=== PATIENT | male | born 1985 | race African-American/Black ===

== ENCOUNTER 2021-10-15 12:16 | Emergency (ER) | payer BC, SELFPAY ==
--- NOTE | ~2021-10-15 | XR_ITS ---
XR elbow RT min 3V DATE: 10/15/2021 12:54 INDICATION: Fall; right elbow pain and swelling TECHNIQUE: 4 views COMPARISON: None FINDINGS: There is posterior elbow soft tissue swelling. Prominent dorsal olecranon process spur. No fracture or dislocation or joint effusion. No periosteal reaction or bone destruction. IMPRESSION: Prominent dorsal olecranon process spur and overlying soft tissue swelling suggesting ole cranon bursitis or hematoma No fracture or dislocation or joint effusion Reviewed, dictated and finalized at location A. IMPRESSION: Prominent dorsal olecranon process spur and overlying soft tissue s welling suggesting olecranon bursitis or hematoma No fracture or dislocation or joint effusion
[2021-10-15 12:20] VITALS: BP 148/83; PULSE 104; RESP 18; TEMP 36.6; O2SAT 100
--- NOTE | 2021-10-15 12:57 | ED.UPPEXIN ---
HPI - Extremity Injury (Upper) General Chief Complaint: Skin/Abscess/Foreign Body Stated Complaint: abcess Time Seen by Provider: 10/15/21 12:29 Source: patient History of Present Illness HPI narrative: Patient presents with right elbow pain. Reports he was playing basketball this morning went for a rebound was undercut and fell backwards landing on his elbow. Noted pain and swelling to the area he was concerned with how large the swelling was thought maybe it needs to be drained so he came to the ER for further evaluation. His pain to his elbow is constant achy worse with attempting to use his elbow no radiation. Denies any focal numbness or weakness. Reports he did strike his head denies any loss of consciousness focal numbness or weakness, changes in vision, nausea, vomiting. Related Data Allergies Allergy/AdvReac Type Severity Reaction Status Date / Time No Known Allergies Allergy Verified 10/15/21 12:26 Review of Systems Review of Systems: CONSTITUTIONAL: Denies fever, chills, or sweats. EYES: Denies visual changes, redness, or discharge. ENT: Denies rhinorrhea, congestion, sore throat, or otalgia. CARDIOVASCULAR: Denies chest pain, palpitations, or edema. RESPIRATORY: Denies cough or dyspnea. GASTROINTESTINAL: Denies abdominal pain, nausea, vomiting, or diarrhea. GENITOURINARY: Denies dysuria or hematuria. SKIN: Denies rash or itching. MUSCULOSKELETAL: Denies back pain, or myalgia. NEUROLOGIC: Denies headache, numbness, dizziness, or weakness. PSYCHIATRIC: Denies anxiety or depression. All systems reviewed & are unremarkable except as noted in HPI and below PMFSH Past Medical History Medical History (Updated 10/15/21 @ 13:44 by Yousuf Tafoya MD) Patient denies significant medical history Exam Narrative: GENERAL: Well-appearing, well-nourished, and in no acute distress. HEAD: Normocephalic, atraumatic. EYES: PERRLA and EOMI. ENT: Nares clear, no rhinorrhea or epistaxis. Mucous membranes moist. NECK: Supple. No masses. No JVD EXTREMITIES: Normal range of motion. Large soft nonmobile fluid mass overlying the right olecranon no erythema no open or draining wounds there is mild tenderness palpation of the olecranon. SKIN: Warm, dry, no rash. NEURO: No focal deficits. Alert and oriented x3. PSYCH: Normal mood and affect. Course Reevaluation(s) Reevaluation #1: Patient resting comfortably results and plan reviewed with patient. Patient is comfortable outpatient plan. Date: 10/15/21 Time: 13:41 Vital Signs Vital signs: Vital Signs Temperature 36.6 C 10/15/21 12:20 Pulse Rate 104 H 10/15/21 12:20 Respiratory Rate 18 10/15/21 12:20 Blood Pressure 148/83 H 10/15/21 12:20 Pulse Oximetry 100 10/15/21 12:20 Oxygen Delivery Room Air 10/15/21 12:20 Temperature 36.6 C 10/15/21 12:20 Pulse Rate 104 H 10/15/21 12:20 Respiratory Rate 18 10/15/21 12:20 Blood Pressure 148/83 H 10/15/21 12:20 Pulse Oximetry 100 10/15/21 12:20 Oxygen Delivery Room Air 10/15/21 12:20 MDM - Extremity Injury (Upper) MDM Narrative Medical decision making narrative: H&P as above, vss, pt looks clinically well, exam swelling and tenderness on the right elbow consistent with olecranon bursitis, imaging without fracture or dislocation additional labs/img considered, symptomatic relief available as needed, on reevaluation pt continues to looks clinically well. Suspect traumatic olecranon bursitis, dns fracture, dislocation, major neurovascular compromise. plan to tx/monitor as op w/ pcm f/u findings/plan discussed with pt, pt agree/comfortable with plan, return precautions given Imaging Data Radiologist's impression: Impressions Elbow X-Ray 10/15/21 13:06 IMPRESSION: Prominent dorsal olecranon process spur and overlying soft tissue swelling suggesting olecranon bursitis or hematoma No fracture or dislocation or joint effusion Discharge Plan Discharge Clinical Impression:
== END 2021-10-15 13:58 | disposition home or self-care (01) ==
PROVIDERS: Emergency Provider Emergency Medicine
DX: M70.21 Olecranon bursitis, right elbow (principal); W18.39XA Other fall on same level, initial encounter; Y93.67 Activity, basketball
CPT/HCPCS: 73080; 99283; A4565